=== PATIENT | female | born 1955 | race Caucasian/White ===

== ENCOUNTER 2018-04-26 05:33 | Observation (INO) | payer OTHER ==
[2018-04-26] MEDS ORDERED: GABAPENTIN 300 MG CAP PO ONE (06:08)
[2018-04-26] MEDS ORDERED: LIDOCAINE 1% 2 ML INJ ID PRN (06:08)
[2018-04-26] MEDS ORDERED: LR 1,000 ML IV ONE (06:08)
[2018-04-26] MEDS ORDERED: ceFAZolin 2 GM/DEXTROSE 100 ML IV ONE (06:08)
[2018-04-26] MEDS ORDERED: ACETAMINOPHEN 500 MG TAB PO ONE (06:08)
--- NOTE | 2018-04-26 06:22 | PDHPUP ---
History & Physical Update H&P update statement: This history and physical update is based on an assessment of the patient which was completed after admission or registration (within 24 hours), but prior to the surgery/procedure. H&P update: H&P reviewed & patient examined, no change in patient's condition since H&P completed
[2018-04-26] MEDS ORDERED: THROMBIN (BOVINE) 5,000 UNIT VIAL TP ONE (06:37)
[2018-04-26] MEDS ORDERED: DEPO METHYLPREDNISOLONE 40 MG/ML SDV ONE (06:37)
[2018-04-26] MEDS ORDERED: BACITRACIN 50,000 UNITS/10 ML SYR IRR ONE (06:37)
[2018-04-26] MEDS ORDERED: BUPIVACAINE/EPI 0.25% 30 ML SDV ONE (06:37)
[2018-04-26] MEDS ORDERED: CHLORHEXIDINE GLUC HIBICLENS 118 ML BTL TP ONE (06:38)
--- NOTE | 2018-04-26 07:05 | PDANEPAE ---
ANE History of Present Illness back pain, djd. here for L3/4 lami ANE Past Medical History - Cardiovascular History Hx Hypertension: Yes Hx Arrhythmias: No Hx Chest Pain: No Hx Coronary Artery / Peripheral Vascular Disease: No Hx CHF / Valvular Disease: No Hx Palpitations: No - Pulmonary History Hx COPD: No Hx Asthma/Reactive Airway Disease: No Hx Recent Upper Respiratory Infection: No Hx Oxygen in Use at Home: No Hx Sleep Apnea: No Sleep Apnea Screening Result - Last Documented: Positive Pulmonary History Comment: NANCY triggers - Neurologic History Hx Cerebrovascular Accident: No Hx Seizures: No Hx Dementia: No Neurologic History Comment: neuropathic L3-4 pain, L>R - Endocrine History Hx Diabetes: No - Renal History Hx Renal Disorders: No - Liver History Hx Hepatic Disorders: No - Neurological & Psychiatric Hx Hx Neurological and Psychiatric Disorders: Yes Neurological / Psychiatric History Comment: anxiety - Cancer History Hx Cancer: No - Congenital Disorder History Hx Congenital Disorders: Yes Congenital History Comment: scoliosis - GI History Hx Gastrointestinal Disorders: Yes Gastrointestinal History Comment: GERD - Other Health History Other Health History: wears glasses. bruises easily - Chronic Pain History Chronic Pain: Yes (legs, back, buttocks) - Surgical History Prior Surgeries: hysterectomy ANE Review of Systems Review of Systems: - Exercise capacity METS (RN): 4 METS ANE Patient History - Allergies Allergies/Adverse Reactions: bupropion [From Wellbutrin] Allergy (Verified 04/13/18 15:38) "I got paranoid and weirded out" - Home Medications Home Medications: Aspirin [Aspirin 81mg (*)] 81 mg PO DAILY 04/13/18 [Last Taken 04/19/18] Calcium Carbonate [Calcium] 04/13/18 [Last Taken 04/26/18] Cholecalciferol Vit D3 [Vitamin D3 (*)] 1,000 units PO DAILY 04/13/18 [Last Taken 04/19/18] Compounded Hrt Tab 1 each PO DAILY 04/13/18 [Last Taken 04/26/18] DULoxetine [Cymbalta 60 MG (*)] 60 mg PO DAILY 04/13/18 [Last Taken 04/26/18] Gabapentin [Neurontin 300 MG (*)] 600 mg PO TID 04/13/18 [Last Taken 04/26/18] Hydrochlorothiazide [HCTZ (*)] 6.25 mg PO DAILY 04/13/18 [Last Taken 04/25/18] Lisinopril [Zestril 10 mg (*)] 10 mg PO DAILY 04/13/18 [Last Taken 04/25/18] Metoprolol Succinate Xr [Toprol Xl 50 mg (*)] 50 mg PO DAILY 04/13/18 [Last Taken 04/26/18] Omeprazole 20 mg PO DAILY 04/13/18 [Last Taken 04/26/18] - NPO status NPO Since - Liquids (Date): 04/25/18 NPO Since - Liquids (Time): 21:00 NPO Since - Solids (Date): 04/25/18 NPO Since - Solids (Time): 19:00 - Smoking Hx Smoking Status: Never smoked - Family Anes Hx Family Hx Anesthesia Complications: none ANE Labs/Vital Signs - Vital Signs Heart Rate: 81 Respiratory Rate: 18 O2 Sat (%): 93 Height: 167.64 cm Weight: 61.689 kg ANE Physical Exam - Airway Neck exam: FROM Mallampati Score: Class 1 Mouth exam: normal dental/mouth exam - Pulmonary Pulmonary: no respiratory distress - Cardiovascular Cardiovascular: regular rate and rhythym - ASA Status ASA Status: III ANE Anesthesia Plan Anesthesia Plan: general endotracheal anesthesia Total IV Anesthesia: No
[2018-04-26] MEDS ORDERED: ONDANSETRON DISINTEGRATING 4 MG TAB PO PRN (07:24)
[2018-04-26] MEDS ORDERED: diphenhydrAMINE 25 MG CAP PO PRN (07:24)
[2018-04-26] MEDS ORDERED: LACTULOSE 20 GM/30 ML UDCUP PO PRN (07:24)
[2018-04-26] MEDS ORDERED: BISACODYL 10 MG SUPP PR PRN (07:24)
[2018-04-26] MEDS ORDERED: HYDROmorphONE/DILAUDID 1 MG/ML INJ IVP PRN (07:24)
[2018-04-26] MEDS ORDERED: ONDANSETRON 4 MG/2 ML VIAL IVP PRN ×2 (07:24→09:33)
[2018-04-26] MEDS ORDERED: METHOCARBAMOL 750 MG TAB PO PRN (07:24)
[2018-04-26] MEDS ORDERED: POLYETHYLENE GLYCOL 3350 17 GM PKT PO PRN (07:24)
[2018-04-26] MEDS ORDERED: MAGNESIUM HYDROXIDE 30 ML UDCUP PO PRN (07:24)
[2018-04-26] MEDS ORDERED: MIDAZOLAM 2 MG/2 ML VIAL IVP ONE (07:25)
[2018-04-26] MEDS ORDERED: PROPOFOL/EMULSION 500 MG/50 ML BOTTLE IV ONE ×2 (07:26→09:18)
[2018-04-26] MEDS ORDERED: REMIFENTANIL HCL 2 MG VIAL ONE (07:26)
[2018-04-26] MEDS ORDERED: LIDOCAINE 2% 5 ML SDV ONE (07:26)
[2018-04-26] MEDS ORDERED: NS 1,000 ML IV SCH (07:30)
[2018-04-26] MEDS ORDERED: PROPOFOL 200 MG/20 ML VIAL ONE (07:59)
[2018-04-26] MEDS ORDERED: HYDROCHLOROTHIAZIDE 12.5 MG CAP PO SCH (09:00)
[2018-04-26] MEDS ORDERED: REMIFENTANIL HCL 1 MG VIAL ONE (09:16)
[2018-04-26] MEDS ORDERED: LR 500 ML IV PRN (09:33)
[2018-04-26] MEDS ORDERED: LABETALOL HCL 20 MG/4 ML INJ IVP PRN (09:33)
[2018-04-26] MEDS ORDERED: fentaNYL 100 MCG/2 ML INJ IVP PRN (09:33)
[2018-04-26] MEDS ORDERED: NALOXONE HCL 0.4 MG/ML INJ IVP PRN (09:33)
[2018-04-26] MEDS ORDERED: DIAZEPAM 5 MG/ML 1 ML SYR IVP PRN (09:33)
[2018-04-26] MEDS ORDERED: PROMETHAZINE HCL 25 MG/ML INJ IVP PRN (09:33)
[2018-04-26] MEDS ORDERED: MEPERIDINE 25 MG/0.5 ML AMP IVP PRN (09:33)
--- NOTE | 2018-04-26 09:44 | POSTOPPROG ---
Post Op Note Date of Operation: 04/26/18 Surgeon: Kari Peña Manager Medical Affairs: OTTO Victoria Anesthesiologist: MD Christiano Anesthesia: GET(General Endotracheal), Local (Specify) Pre-op Diagnosis: lumbar stenosis L3/4 Post-op Diagnosis: lumbar stenosis L3/4, HTN Indication: BLE pain Procedure: L3/4 laminectomy Findings: none Inf/Abcess present in the surg proc area at time of surgery?: No Depth: Deep Incisional (Fascial) EBL: 50-100 Total fluids administered: see anesthesia record Complications: pt with intraop HTN-IM consulted for eval post op
--- NOTE | 2018-04-26 10:01 | SOAPPROG ---
SOAP Progress Note Assessment/Plan: Post Op Visit: S: Awake and alert. Pt with expected lower back pain O: AFVSS/PERRLA/EOMI no droop CN 2-12 grossly intact +lt touch 5/5 BUE/BLE = CDI A/P: 62 yo female that is s/p L3/4 laminectomy with intraop HTN -anesthesia/NS requested eval of HTN -IM consulted for evaluation-appreciate their involvement -take medications as directed -PT/OT -no bending or twisting -admit obs -pt seen by Dr Peña as well -call with any questions or concerns Objective: Vital Signs Temp Pulse Resp BP Pulse Ox 36.9 C 81 18 93 04/26/18 06:13 04/26/18 07:25 04/26/18 07:25 04/26/18 07:25 ICD10 Worksheet Patient Problems: Problems Problem Status Onset Lumbar stenosis Acute - ICD10 Problem Qualifiers (1) Lumbar stenosis Qualifiers: Neurogenic claudication status: with neurogenic claudication Qualified Code (s): M48.062 - Spinal stenosis, lumbar region with neurogenic claudication
--- NOTE | 2018-04-26 10:19 | POSTANESTH ---
Post Anesthetic Evaluation Cardiovascular Status: Normal, Stable, Similar to Pre-Op Cond Respiratory Status: Normal, Stable Level of Consciousness/Mental Status: Can Participate in Eval Pain Control: Adequate, Prn Tx Ordered Nausea/Vomiting Control: Adequate, Prn Tx Ordered Complications Possibly Related to Anesthesia: None Noted (Admitted by surgery for w/u uncontrolled HTN. Stable in PACU. Can be DC to floor with baseline BP of 190/90)
--- NOTE | 2018-04-26 10:21 | PDHOSCONS ---
History and Physical - Chief Complaint consulted for management of chronic medical problems - History of Present Illness 62yo F with HTN, chronic low back pain with radicular symptoms, lumbar spinal stenosis who underwent a L3-[address] Peña this morning. The medicine team has been consulted for management of her chronic medical issues, namely her hypertension. I evaluated her in the post-operative setting. She is still slightly feeling the effects of anesthesia. She denies any recent chest pain, syncope, dyspnea, leg swelling. No recent changes in BP meds. History Information - Allergies/Home Medication List Allergies/Adverse Reactions: bupropion [From Wellbutrin] Allergy (Verified 04/13/18 15:38) "I got paranoid and weirded out" Home Medications: Aspirin [Aspirin 81mg (*)] 81 mg PO DAILY 04/13/18 [Last Taken 04/19/18] Calcium Carbonate [Calcium] 04/13/18 [Last Taken 04/26/18] Cholecalciferol Vit D3 [Vitamin D3 (*)] 1,000 units PO DAILY 04/13/18 [Last Taken 04/19/18] Compounded Hrt Tab 1 each PO DAILY 04/13/18 [Last Taken 04/26/18] DULoxetine [Cymbalta 60 MG (*)] 60 mg PO DAILY 04/13/18 [Last Taken 04/26/18] Gabapentin [Neurontin 300 MG (*)] 600 mg PO TID 04/13/18 [Last Taken 04/26/18] Hydrochlorothiazide [HCTZ (*)] 6.25 mg PO DAILY 04/13/18 [Last Taken 04/25/18] Lisinopril [Zestril 10 mg (*)] 10 mg PO DAILY 04/13/18 [Last Taken 04/25/18] Metoprolol Succinate Xr [Toprol Xl 50 mg (*)] 50 mg PO DAILY 04/13/18 [Last Taken 04/26/18] Omeprazole 20 mg PO DAILY 04/13/18 [Last Taken 04/26/18] I have personally reviewed and updated: family history, medical history, social history, surgical history - Past Medical History Additional medical history: HTN, chronic low back pain, lumbar spinal stenosis - Surgical History Additional surgical history: hysterectomy, L3-4 laminectomy - Family History Additional family history: strong family history of CAD. father - passed of [place] at 62, mother with CABG in 60 or 70s, 2 brothers who had MIs in 50s or 60s - Social History Smoking Status: Never smoked Alcohol Use: Other (2-3 drinks daily) Drug Use: None Review of Systems Review of Systems: ROS: 10pt was reviewed & negative except for what was stated in HPI & below Physical Exam Physical Exam: Temp Pulse Resp BP Pulse Ox 36.2 C 81 18 93 04/26/18 09:51 04/26/18 07:25 04/26/18 07:25 04/26/18 07:25 Constitutional: no apparent distress, appears nourished, not in pain Eyes: PERRL, anicteric sclera, EOMI Ears, Nose, Mouth, Throat: moist mucous membranes, hearing normal, ears appear normal, no oral mucosal ulcers Cardiovascular: regular rate and rhythym, no murmur, rub, or gallop, No edema Respiratory: no respiratory distress, no rales or rhonchi, clear to auscultation Gastrointestinal: normoactive bowel sounds, soft, non-tender abdomen, no palpable masses Genitourinary: no bladder fullness, no bladder tenderness Skin: warm, normal color, no rashes or abrasions, no fluctuance, no induration, No mottled Musculoskeletal: full muscle strength, no muscle tenderness, normal joint ROM, no joint effusions Neurologic: AAOx3 Psychiatric: interacting appropriately, not anxious, not encephalopathic, thought process linear Lymph, Heme, Immunologic: no cervical LAD, no supraclavicular LAD Assessment & Plan Assessment: 62yo F with HTN, chronic low back pain with radicular symptoms, lumbar spinal stenosis who underwent a L3-[address] Peña this morning. Medicine has been consulted for management of her chronic medical problems. Plan: 1. Hypertension: - Goal BP<140/90 - Will restart home medications and titrate as needed 2. Strong family history of CAD - Resume aspirin for primary prevention when ok from surgical team - Should likely be on statin as outpatient 3. Depression, anxiety - Resume home duloxetine 4. GERD: - Continue PPI 5. Chronic LBP with L3-4 stenosis s/p laminectomy - Pain control per surgery team Thank you for this consult, we will continue to follow along.
[2018-04-26] MEDS ORDERED: HYDROmorphONE/DILAUDID 2 MG/ML INJ ONE (10:29)
[2018-04-26] MEDS: HYDROmorphONE/DILAUDID 2 MG/ML INJ IVP PRN ×3 (10:33→11:17)
--- NOTE | 2018-04-26 10:57 | GOP ---
DATE OF OPERATION: 04/26/2018 SURGEON: Shabana Peña MD NEUROSURGEON: Shabana Peña MD. PATTERN CHANGER AND REPAIRER: Usama Victoria PA-C. PREOPERATIVE DIAGNOSIS: Lumbar stenosis, lumbar degenerative disk disease, lumbar spondylosis, neuro genic claudication, mild degenerative scoliosis, mild spondylolisthesis, L3-4. POSTOPERATIVE DIAGNOSIS: Lumbar stenosis, lumbar degenerative disk disease, lumbar spondylosis, neur ogenic claudication, mild degenerative scoliosis, mild spondylolisthesis, L3-4. PROCEDURE PERFORMED: Bilateral laminectomy L3-4 with bilateral medial facetectomies, decompression o f the central thecal sac ([id number]), microscope. FINDINGS: ESTIMATED BLOOD LOSS: 25 cc. INDICATIONS: The patient is a 62-year-old who had bilateral neurogenic claudication and severe pain. MRI demonstrated problems at L3-4, L4-5, L5-1 and, in fact, in the left at L4-5 and L5-1, there was lateral recess stenosis, but her symptoms were bilateral. I felt that they were emanating from the L3-4 level. I suggested a single-level laminectomy. She did struggle with hypertension, and the prince agustín was elected to be done as an inpatient here at [facility]. The risks of nerve i njury, spinal fluid leak, continued symptoms, the possibility of a more substantial reconstructive unger rgery of the spine, or even further decompressive surgery at these other levels, were discussed. She knew these were the risks, and she wanted to proceed. DESCRIPTION OF PROCEDURE: The patient was taken to the operating room, placed in supine position. G eneral anesthesia was begun. She was flipped prone onto the Jourdan frame. Care was taken to pad all points of contact. Her back was sterilely prepped and draped in the usual fashion. A localizing x- ray was taken. We made a midline incision measuring 2.5 cm. The subcutaneous tissue was dissected u sing Bovie cautery down to the fascia, and a subperiosteal dissection was made down the L3-4 lamina. Self-retaining retractor was placed. A localizing x-ray was taken. We drilled a bilateral L3-4 benoit inectomy, removed the inferior spinous process of L3, and then drilled a rostral laminectomy of L4. Much of the compression was adjacent to the mid pedicle of L4, and we took off the very rostral edge of the L4 lamina. We took off the inferior L3 lamina, performed bilateral facetectomies, and got a g reat decompression on each side. We shot a final x-ray, proving the location of our decompression. We irrigated with antibiotic saline solution and then closed the incision in multiple layers using Vi cryl sutures. Steri-Strips were applied to the skin. The patient was reversed from anesthesia, extu bated, and transferred to recovery room in stable condition. COMPLICATIONS: None. /[id number]/MODL
[2018-04-26] MEDS: DULoxetine 60 MG CAP PO SCH (12:10)
[2018-04-26] MEDS: [UNRECOGNIZED DRUG - OTHER] PO SCH (12:10)
[2018-04-26] MEDS: FAMOTIDINE 20 MG TAB PO SCH ×2 (12:11→21:33)
[2018-04-26] MEDS: GABAPENTIN 300 MG CAP PO SCH ×3 (12:12→21:33)
[2018-04-26] MEDS: LISINOPRIL 10 MG TAB PO SCH (14:18)
[2018-04-26] MEDS: SENNOSIDES/DOCUSATE SODIUM TAB PO SCH ×2 (14:18→21:34)
[2018-04-26] MEDS: METOPROLOL SUCCINATE XR 50 MG TAB PO SCH (14:20)
[2018-04-26] MEDS: ACETAMINOPHEN 500 MG TAB PO SCH ×2 (14:21→21:34)
[2018-04-26] MEDS: PANTOPRAZOLE SODIUM 40 MG TAB PO SCH (14:21)
[2018-04-26] MEDS: ceFAZolin 2 GM/DEXTROSE 100 ML IV SCH ×2 (15:54→23:34)
[2018-04-27] MEDS: ACETAMINOPHEN 500 MG TAB PO SCH (06:01)
--- NOTE | 2018-04-27 07:03 | NEUSURGPN ---
Date of Surgery: 04/26/18 Post Op Day: 1 Assessment/Plan: Assessment: 62 yo female that is s/p L3/4 laminectomy with intraop HTN Plan: -anesthesia/NS requested eval of HTN -IM consulted for evaluation-appreciate their involvement -take medications as directed -pain management doing fine at this time -PT/OT-pending this am -no bending or twisting -admit obs -plan for dc when IM clears from their standpoint -pt seen by Dr Peña as well -call with any questions or concerns Subjective: Awake and alert. No new complaints or concerns. Pt with expected lower back pain. Legs feel fine Objective: AFVSS/PERRLA/EOMI no droop CN 2-12 grossly intact +lt touch 5/5 BUE/BLE = CDI Neuro Check Frequency: per routine Urinary Catheter in Place: No - Physician Discussed Patient with : Casey Patient Seen by : Casey Neurosurgery Physical Exam - Vitals, I&O, Labs I and O 04/26/18 04/27/18 04/28/18 05:59 05:59 05:59 Intake Total 3800 Output Total 1750 Balance 2049 Weight 70.307 kg Intake: Oral (ml) 2200 IV Intake (ml) 1600 Output: Urine (ml) 1700 Toilet 1700 Estimated Blood Loss (ml) 50 Other: Intake Quantity Yes Sufficient Number of Voids Toilet 1 Vital Signs Temp Pulse Resp BP Pulse Ox 36.6 C 76 16 135/84 H 96 04/27/18 04:00 04/27/18 04:00 04/27/18 04:00 04/27/18 04:00 04/27/18 04:00 ICD10 Worksheet Patient Problems: Problems Problem Status Onset Lumbar stenosis Acute - ICD10 Problem Qualifiers (1) Lumbar stenosis Qualifiers: Neurogenic claudication status: with neurogenic claudication Qualified Code (s): M48.062 - Spinal stenosis, lumbar region with neurogenic claudication
[2018-04-27] MEDS: oxyCODONE IR 5 MG TAB PO PRN ×2 (08:33→13:46)
[2018-04-27] MEDS: SENNOSIDES/DOCUSATE SODIUM TAB PO SCH (08:34)
[2018-04-27] MEDS: PANTOPRAZOLE SODIUM 40 MG TAB PO SCH (08:34)
[2018-04-27] MEDS: FAMOTIDINE 20 MG TAB PO SCH (08:34)
[2018-04-27] MEDS: METOPROLOL SUCCINATE XR 50 MG TAB PO SCH (08:34)
[2018-04-27] MEDS: GABAPENTIN 300 MG CAP PO SCH (08:34)
[2018-04-27] MEDS: DULoxetine 60 MG CAP PO SCH (08:35)
[2018-04-27] MEDS: LISINOPRIL 10 MG TAB PO SCH (08:36)
[2018-04-27] MEDS: [UNRECOGNIZED DRUG - OTHER] PO SCH (08:37)
[2018-04-27] MEDS ORDERED: HYDROCHLOROTHIAZIDE 25 MG TAB PO SCH ×2 (09:00→12:09)
--- NOTE | 2018-04-27 10:44 | ASMTCMCOM ---
CM Note CM Note Notes: 04/27/2018 Case Management Note Met w/pt to discuss d/c needs. Pt lives with her Philippe [phone] and has support from her daughter who lives nearby. Philippe plans to prepare meals and transport pt as needed. Pt inquired about obtaining a walker. Offered loan closet list, pt declined and [facility] PT has cleared pt to return home. Case Management d/c poc: home with follow up as directed. Case Management available if needs change. Date Signed: 04/27/2018 10:44 AM Electronically Signed By:Valerie Mcclellan RN
[2018-04-27 11:54] VITALS: BP 138/88
--- NOTE | 2018-04-27 13:04 | PDDCSUM ---
Discharge Summary Discharge Summary: Date of Admission: April 26, 2018 Date of Discharge: April 27, 2018 Discharge Diagnoses: Low back pain L3-4 stenosis, s/p lumbar spine surgery HTN Admission Diagnoses: Hypertension Family history of coronary artery disease Depression and anxiety GERD Chronic low back pain with L3-4 stenosis, status post laminectomy Consultants: Hospitalist-Dr. Aj Guillory NSG - Dr. Cecil Peña [facility] Course: The patient is a 62-year-old female who was admitted by her neurosurgeon, Dr. Cecil Peña, to undergo lumbar spine surgery. Patient had been getting bilateral neurogenic claudication and severe pain. MRI had demonstrated problems at L3-L4, L4-L5, L5-L1. Patient underwent a bilateral laminectomy at L3-L4 with bilateral medial facetectomies, decompression of the central thecal sac, and microdiscectomy. Intraoperatively and postoperatively, the patient had elevated blood pressure with a max of 160/94. Hospitalist was consulted to manage blood pressure. Acutely elevated blood pressure was thought to be secondary to the stress of surgery. Patient was observed overnight and her blood pressure improved. It was still a bit elevated at 143/95, so her hydrochlorothiazide was increased from 6.25 to 12.5 mg. Blood pressure at the time of discharge was 138/88. She was recommended to monitor her blood pressure at home and bring a log of her blood pressure recording to her PCP who may continue to adjust her blood pressure medicine. Patient was feeling well and was discharged the next day in stable condition. Physical Exam: Gen - alert, oriented, in NAD. Neuro/MSK: moves all extremties equally. Condition: Stable. Discharged to: Home. Pertinent tests/labs/imaging: N/A. Medications: Please see med rec form. Continued home medications. Increase dose of hydrochlorothiazide from 6.25-12.5 mg. Special instructions: Recommend walker for use at home to avoid falling. Short, frequent walks. No bending, lifting, twisting. Follow up: PCP Dr. Iain Mcgee in 1 week - for HTN. NSG Dr. Cecil Peña in 2 weeks.
--- NOTE | 2018-04-27 16:54 | ASDISCHSUM ---
Discharge Information Plan Status:Home with No Needs Medically Cleared to Leave:04/26/2018 Discharge Date:04/27/2018 01:56 PM D/C Disposition:Home, Routine, Self-Care ADT D/C Disposition:Home, Routine, Self-Care Projected Discharge Date:04/27/2018 01:56 PM Transportation at D/C: Discharge Delay Reason: Follow-Up Date:04/27/2018 01:56 PM Discharge Slot: Final Diagnosis: Placement Information Patient Contact Information Contact Name:TIMOTHY Relationship: Address: City: [facility] Phone: [facility] Code: Email: Financial Information Financial Class:BC Primary Plan Desc:[facility] PLAN Primary Plan Number:[id number] Secondary Plan Desc: Secondary Plan Number: Assessment Information LACE LACE Length of stay for Answers: 1 day current admission Comorbidities - select Answers: Opioid dependence all that apply / Chronic pain Other Notes: HTN; GERD # of Emergency department Answers: 0 visits in the last 6 months Social determinants Answers: Mental health diagnosis (anxiety, depression, pers onality disorders, etc.) Score: 9 Date Signed: 04/27/2018 04:53 PM Electronically Signed By:Valerie Mcclellan RN [facility] CM Progress Note CM Note CM Note Notes: 04/27/2018 Case Management Note Met w/pt to discuss d/c needs. Pt lives with her Philippe [phone] and has support from her daughter who lives nearby. Philippe plans to prepare meals and transport pt as needed. Pt inquired about obtaining a walker. Offered loan closet list, pt declined and plans to purchase walker at [facility]. PT has cleared pt to return home. Case Management d/c poc: home with follow up as directed. Case Management available if needs change. Date Signed: 04/27/2018 10:44 AM Electronically Signed By:Valerie Mcclellan RN Intervention Information
[2018-04-29] MEDS ORDERED: ENOXAPARIN 40 MG/0.4 ML SYR SC SCH (09:00)
== END 2018-04-27 13:56 | disposition home or self-care (01) ==
LOC: F3E 05:33 → F3N 11:41
PROVIDERS: ADMIT Neurological Surgery; ATTEND Internal Medicine
PROC: 4A10X4G Monitoring of Central Nervous Electrical Activity, Intraoperative, External Approach (ICD-10-PCS; principal; 2018-04-26 07:15)
PROC: BR19YZZ Fluoroscopy of Lumbar Spine using Other Contrast (ICD-10-PCS; principal; 2018-04-26 07:15)
PROC: 00NY0ZZ Release Lumbar Spinal Cord, Open Approach (ICD-10-PCS; principal; 2018-04-26 07:15)
DX: M48.062 Spinal stenosis, lumbar region with neurogenic claudication (principal); M54.16 Radiculopathy, lumbar region; M51.36 Other intervertebral disc degeneration, lumbar region; M43.16 Spondylolisthesis, lumbar region; M41.9 Scoliosis, unspecified; G89.29 Other chronic pain; I10 Essential (primary) hypertension; K21.9 Gastro-esophageal reflux disease without esophagitis; F32.9 Major depressive disorder, single episode, unspecified; F41.9 Anxiety disorder, unspecified; Z82.49 Family history of ischemic heart disease and other diseases of the circulatory system; Z23 Encounter for immunization
CPT/HCPCS: 63047; 76001; 90471; 97161; 97165; 97535; G0378; G0008; J0690; J1030; J1170; J2250; J2704